=== PATIENT | female | born 1975 | race African-American/Black ===

== ENCOUNTER → 2016-10-20 | Day surgery (SDC) | payer OTHER ==
[~2016-10-20] VITALS: Ht 170.2 cm; Wt 97.9 kg
[~2016-10-20] MED LIST: *HYDROmorphone PF 1 MG VIAL PERIprocedural Use ONLY ONE; APREPITANT 40 MG CAP ONE; B-122000 PO; BUPIVACAINE/EPINEPHRINE 0.25% 50 ML VIAL ONE; CHLORHEXIDINE GLUCONATE 2 % 1 PACK (2 CLOTHS) TOPICAL PRN; CHOL5000 PO; DO NOT ADM ANY ANTICOAGULANT DRUGS PRN; FERR325T8 PO; FLUO-1 PO; INSULIN HUMAN REGULAR 1,000 UNITS/10 ML VIAL SQ PRN; KETOROLAC TROMETHAMINE 30 MG/ML (IVP) VIAL ONE; LACTATED RINGER'S 1000 ML INJ 1,000 ML IV ONE; LACTATED RINGER'S 1000 ML IV PRN; METOPROLOL TARTRATE 25 MG TAB PO PRN; MIDAZOLAM HCL 2 MG/2 ML VIAL ONE; MONT10TA2 PO; MONT10TA4 PO; NEOSTIGMINE 3 MG/3 ML SYR IV ONE; ONDANSETRON HCL 4 MG/2 ML VIAL IV PUSH ONE; PANT20 PO; PHENYLEPH/NS 1000 MCG/10 ML SYR IV ONE; POVIDONE IODINE 5% (ANTISEPSIS KIT) 4 APPLICATIONS EACH NARE PRN; PROPOFOL 200 MG/20 ML AMP IV ONE; PROT40TA PO; PROZ20CA11 PO; SODIUM CHLORID 0.9% 500 ML IV PRN; SULF1TAB47 PO; VITA1000 PO; VITA250T3 PO; VITA250T5 PO
[2016-10-20] MEDS: ceFAZolin 2 GM PREMIX 50 ML IV SCH ×2 (08:06→08:12)
[2016-10-20] MEDS: ACETAMINOPHEN 1000 MG/100 ML VIAL IV SCH ×2 (08:06→08:12)
--- NOTE | 2016-10-20 12:36 | PD.OP ---
cc: Ji Garrett MD; Mile Rocha MD Operative Report Date of Surgery: Oct 20, 2016 Preoperative Diagnosis: Anterior abdominal wall hernia Postoperative Diagnosis: Anterior abdominal wall hernia Procedure: Laparoscopic repair of anterior abdominal wall hernia with ventral light ST mesh Anesthesia: General endotracheal Surgeon: Ji Garrett [employer] Custodian(s): None Operation and Findings: Operative findings: The patient was found to have a 2.5 cm anterior abdominal wall hernia several centimeters above the umbilicus. It had a large amount of inspissated fat associated with it which had originally come from the falciform ligament. There is no evidence of incarcerated viscera and no other defects were noted although there was a slight weakness at the umbilicus. Operative procedure: Patient brought to the operating room and after satisfactory general endotracheal anesthesia obtained, a TA P block was placed by anesthesia. The abdomen was then prepped and draped in usual sterile fashion. 0.25% Marcaine with epinephrine was infiltrated in the skin for local anesthesia. Small incision was made in the sub-costal region on the left side and the perineal cavity was entered bluntly with care being taken not to injure the underlying viscera. A 12 mm GelPort was placed within the peritoneal cavity and the abdomen then insufflated to 15 mmHg using carbon dioxide. The camera was reinserted and visceral injury inspected for, with none being identified. Under direct visualization 25 mm ports were placed on the left side one on the right side. The inspissated fat was removed from the defect by blunt dissection. The falciform was left intact for the moment and attention turned to the repair. The fat along the anterior peritoneum was removed to allow clear peritoneal surface. A 1.4 cm round ventral light ST patch was selected. It was rolled and then placed within the peritoneal cavity without problem. The side for exit of the catheter was identified and using a [place] suture passer, the catheter was brought externally. The mesh backbone was then inflated and it was brought into close contact with the anterior abdominal wall in a location which would completely cover the hernia defect. The mesh was then tacked circumferentially with absorbable tacks after which the mesh backbone was removed without problem. The mesh was then completely attached to the anterior abdominal wall using absorbable tacks there was little or no area of the mesh which was not in contact with the anterior abdominal wall. The remainder of the falciform was resected with a Harmonic scalpel and then placed within an Endo Catch bag and brought through the 12 mm port without problem. The area was checked for hemostasis which was seen to be satisfactory. The mesh repair was again checked and found be satisfactory. The carbon dioxide was then vented as completely as possible the atmosphere. The ports were removed and the 12 mm fascial defect closed with a single suture of 0 Vicryl. Skin was closed with interrupted 4-0 PDS subcuticular stitches. Steri-Strips were applied the patient then awakened and taken from the operating room, satisfactory condition, having tolerated the procedure problem. Estimated blood loss was less than 5 mL's. The incision, sponge, and needle counts were reported as being correct 2 at the end of the procedure. Ji Garrett MD Oct 20, 2016 12:36
[2016-10-20 13:30] VITALS: TEMP 97.9
[2016-10-20 14:20] VITALS: BP 126/66; PULSE 87; RESP 20; O2SAT 100
== END | disposition home or self-care (01) ==
LOC: HSDC 06:29
PROVIDERS: ATTEND Surgery
DX: K43.9 Ventral hernia without obstruction or gangrene (principal); I49.9 Cardiac arrhythmia, unspecified; R00.2 Palpitations; K21.9 Gastro-esophageal reflux disease without esophagitis; D64.9 Anemia, unspecified; F43.21 Adjustment disorder with depressed mood; J30.9 Allergic rhinitis, unspecified; D53.1 Other megaloblastic anemias, not elsewhere classified; E66.9 Obesity, unspecified; E55.9 Vitamin D deficiency, unspecified; Z68.33 Body mass index [BMI] 33.0-33.9, adult; Z30.41 Encounter for surveillance of contraceptive pills; Z79.899 Other long term (current) drug therapy
CPT/HCPCS: 00752; 49652; C1781; J0131; J0690; J1170; J1885; J2250; J2370; J2405; J2710; J3010; J7120; J8501